=== PATIENT | male | born 1990 | race Caucasian/White ===

== ENCOUNTER 2017-09-30 01:18 | Emergency (ER) | payer MEDICAID, OTHER ==
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
[2017-09-30] MEDS ORDERED: IBUPROFEN 200 MG TAB PO ONE (04:13)
[2017-09-30 04:23] VITALS: BP 129/80
== END 2017-09-30 04:36 | disposition home or self-care (01) ==
LOC: EDUNIT#
DX: S42.201A Unspecified fracture of upper end of right humerus, initial encounter for closed fracture (principal); Y04.2XXA Assault by strike against or bumped into by another person, initial encounter; Y92.009 Unspecified place in unspecified non-institutional (private) residence as the place of occurrence of the external cause; Y99.8 Other external cause status; Y93.84 Activity, sleeping
CPT/HCPCS: A4565